=== PATIENT | female | born 1955 | race Two or more races ===

== ENCOUNTER 2022-12-04 23:57 | Inpatient (IN) | payer OTHER, MEDICAID ==
[~2022-12-04] VITALS: Ht 160 cm; Wt 98.5 kg
[2022-12-05] MEDS ORDERED: ONDANSETRON ODT 4 MG TAB PO ONE ×2 (02:45→04:30)
[2022-12-05] MEDS ORDERED: HYDROcodone-ACET 10/325MG TAB PO ONE (04:30)
[2022-12-05 04:55] LABS: Eosinophils # (auto) 0 10 ^3/uL (0-0.8); Hemoglobin 8.5 g/dL (12.2-16.2); Lymphocytes # (auto) 0.9 10 ^3/uL (0.4-5.4); Monocytes # (auto) 0.3 10 ^3/uL (0-1.3); Neutrophils # (auto) 9.3 10 ^3/uL (1.6-8.6); White Blood Cell 10.5 10^3/uL (4.4-10.8)
[2022-12-05 04:57] LABS: Basophils # (auto) 0.1 10 ^3/uL (0-0.2); Basophils % (auto) 0.6 % (0.0-2.0); Eosinophils % (auto) 0.3 % (0.0-7.0); Hematocrit 26.9 % (36.0-46.0); Lymphocytes % (auto) 8.3 % (10.0-50.0); Mean Corpuscular Hemoglobin 22.8 pg (28.0-32.0); Mean Corpuscular Hgb Conc. 31.5 g/dL (32.0-36.0); Mean Corpuscular Volume 72.6 fL (80.0-100.0); Monocytes % (auto) 3.1 % (0.0-12.0); Neutrophils % (auto) 87.7 % (37.0-80.0); Red Cell Distribution Width 18.5 % (11.8-14.3)
[2022-12-05 05:07] LABS: Albumin 3.6 g/dL (3.4-5.0); BUN/Creatinine Ratio 18.1; Calcium 8.6 mg/dL (8.5-10.1); Potassium 4.3 mmol/L (3.5-5.1)
[2022-12-05 05:10] LABS: Bilirubin, Total 0.3 mg/dL (0.2-1.0); Total Protein 7.5 g/dL (6.4-8.2)
[2022-12-05] MEDS ORDERED: SODIUM CHLORIDE 0.9% 1,000 ML IV SCH (05:45)
[2022-12-05] MEDS ORDERED: NITROGLYCERIN 0.4 MG SL TAB SL PRN (05:45)
[2022-12-05] MEDS ORDERED: MORPHINE SULFATE INJ 2 MG/ml SYRG IV PRN (05:45)
[2022-12-05] MEDS ORDERED: DEXTROSE (50%) 50ML SYRG IV PRN (05:45)
[2022-12-05] MEDS ORDERED: hydrALAZINE HCL 20 MG/ML VL IV PRN (05:45)
[2022-12-05] MEDS ORDERED: DOCUSATE SOD 100 MG CAP PO PRN (05:45)
[2022-12-05] MEDS ORDERED: ATOR20TA50 PO (06:11)
[2022-12-05] MEDS ORDERED: PRIM50TA27 PO (06:11)
[2022-12-05] MEDS ORDERED: HYDR25TA4 PO (06:11)
[2022-12-05] MEDS ORDERED: ASPI-543 PO (06:11)
[2022-12-05] MEDS ORDERED: GABA300C10 PO (06:11)
[2022-12-05] MEDS ORDERED: BENA5TAB9 PO (06:11)
[2022-12-05] MEDS: ONDANSETRON HCL 4 MG/2 ML VIAL IV PRN ×4 (06:42→22:09)
[2022-12-05] MEDS: InsuLIN REG 1unit/0.01ml Soln (100units/ml) SC SCH ×4 (06:48→22:00)
[2022-12-05] MEDS: ACCU-CHEK COMFORT CURVE STRIP VI SCH ×4 (06:48→22:00)
[2022-12-05] MEDS: HYDROcodone-ACET 5/325MG TAB PO PRN ×4 (07:54→22:22)
[2022-12-05] MEDS ORDERED: ASPirin 81 mg TAB PO SCH (10:00)
[2022-12-05] MEDS ORDERED: FUROSEMIDE 20 MG/2 ML VIAL IV SCH (10:00)
[2022-12-05] MEDS ORDERED: ENOXAPARIN SOD 40 MG/0.4 ML SYRINGE SC SCH (10:00)
[2022-12-05] MEDS ORDERED: FAMOTIDINE (10MG/ML) 2ML VL IV SCH (10:00)
[2022-12-05] MEDS ORDERED: CLOPIDOGREL BISULFATE 75 MG TAB PO ONE (11:00)
[2022-12-05] MEDS ORDERED: IOHEXOL 350 MG/ML 100ML IJ ONE (11:05)
[2022-12-05] MEDS ORDERED: PANTOPRAZOLE 40 MG TAB PO ONE (11:15)
[2022-12-05] MEDS: SUCRALFATE 1 GM/10 ML ORAL SUSP PO SCH ×3 (11:26→22:19)
[2022-12-05 11:50] LABS: Urine Bacteria NONE SEEN /hpf (None Seen); Urine Blood Negative /uL (Negative); Urine Hyaline Cast FEW /lpf (0 - 2); Urine Specific Gravity 1.006 (1.001-1.035); Urine WBC 3 /hpf (0 - 5)
[2022-12-05 11:51] LABS: Cholesterol 151 mg/dL (< 200); HDL Cholesterol 68 mg/dL (40-59); LDL Cholesterol 74 mg/dL (< 100); Triglycerides 83 mg/dL (< 150)
[2022-12-05 11:55] LABS: Alcohol, Urine < 3.0 mg/dL (0-10); Amphetamine Screen, Urine NEGATIVE (NEGATIVE); Barbiturate Scree,Urine NEGATIVE (NEGATIVE); Benzodiazephine Screen, Urine NEGATIVE (NEGATIVE); Cannabinoid Screen, Urine NEGATIVE (NEGATIVE); Cocaine Screen, Urine NEGATIVE (NEGATIVE); Opiate Scree,Urine NEGATIVE (NEGATIVE); Phencyclidine Screen, Urine NEGATIVE (NEGATIVE)
[2022-12-05] MEDS: ONDANSETRON ODT 4 MG TAB PO PRN (16:36)
[2022-12-05] MEDS: ATORVASTATIN 20 MG TAB PO SCH ×2 (22:00→22:20)
[2022-12-05] MEDS ORDERED: ATORVASTATIN 20 MG TAB PO SCH ×2 (22:00)
[2022-12-05] MEDS: FUROSEMIDE 20 MG/2 ML VIAL IV SCH (22:19)
[2022-12-05] MEDS: PRIMIDONE 50 MG TAB PO SCH (22:21)
[2022-12-05] MEDS: PANTOPRAZOLE 40 MG TAB PO SCH (22:22)
[2022-12-05] MEDS: GABAPENTIN 100 MG CAP PO SCH (22:22)
[2022-12-05 22:48] VITALS: BP 126/77
[2022-12-06] MEDS: ACETAMINOPHEN 325 MG TAB PO PRN ×4 (02:43→22:57)
[2022-12-06 03:08] VITALS: BP 127/64
[2022-12-06 05:00] VITALS: BP 119/62
[2022-12-06] MEDS: ONDANSETRON ODT 4 MG TAB PO PRN ×2 (05:09→16:47)
[2022-12-06 06:14] LABS: Basophils # (auto) 0.1 10 ^3/uL (0-0.2); Basophils % (auto) 1.2 % (0.0-2.0); Eosinophils # (auto) 0.1 10 ^3/uL (0-0.8); Eosinophils % (auto) 1.4 % (0.0-7.0); Hematocrit 23.8 % (36.0-46.0); Lymphocytes # (auto) 1.2 10 ^3/uL (0.4-5.4); Monocytes # (auto) 0.8 10 ^3/uL (0-1.3)
[2022-12-06 06:17] LABS: Hemoglobin 7.5 g/dL (12.2-16.2); Lymphocytes % (auto) 17.7 % (10.0-50.0); Mean Corpuscular Hemoglobin 22.7 pg (28.0-32.0); Mean Corpuscular Hgb Conc. 31.4 g/dL (32.0-36.0); Mean Corpuscular Volume 72.4 fL (80.0-100.0); Monocytes % (auto) 12.4 % (0.0-12.0); Neutrophils # (auto) 4.5 10 ^3/uL (1.6-8.6); Neutrophils % (auto) 67.3 % (37.0-80.0); Nucleated Red Blood Cells % 0.1 %; Red Blood Cells 3.29 10^6/uL (4.0-5.20); Red Cell Distribution Width 18.3 % (11.8-14.3); White Blood Cell 6.6 10^3/uL (4.4-10.8)
[2022-12-06] MEDS: ACCU-CHEK COMFORT CURVE STRIP VI SCH ×4 (06:31→21:22)
[2022-12-06] MEDS: SUCRALFATE 1 GM/10 ML ORAL SUSP PO SCH ×4 (06:31→21:20)
[2022-12-06] MEDS: InsuLIN REG 1unit/0.01ml Soln (100units/ml) SC SCH ×4 (06:31→21:22)
[2022-12-06 06:58] LABS: Potassium 3.6 mmol/L (3.5-5.1)
[2022-12-06 07:07] LABS: Albumin 3.4 g/dL (3.4-5.0); BUN/Creatinine Ratio 16.3; Bilirubin, Total 0.5 mg/dL (0.2-1.0); Calcium 8.3 mg/dL (8.5-10.1); Total Protein 6.3 g/dL (6.4-8.2)
[2022-12-06 08:20] LABS: % Iron Saturation 4.5 % (15-50)
[2022-12-06 09:00] VITALS: BP 126/71
[2022-12-06] MEDS: PANTOPRAZOLE 40 MG TAB PO SCH ×2 (09:48→21:20)
[2022-12-06] MEDS: FUROSEMIDE 20 MG/2 ML VIAL IV SCH ×2 (09:49→21:21)
[2022-12-06] MEDS ORDERED: CLOPIDOGREL BISULFATE 75 MG TAB PO SCH (10:00)
[2022-12-06 13:00] VITALS: BP 136/75
[2022-12-06] MEDS ORDERED: POLYETHYLENE GLYCOL 17 GM PWDR PO ONE (13:30)
[2022-12-06] MEDS ORDERED: SODIUM FERR GLUC 62.5MG/5ML 125 MG in SODIUM CHL 0.9% 100 ML IV ONE (14:30)
[2022-12-06 17:10] VITALS: BP 121/66
[2022-12-06] MEDS: ATORVASTATIN 20 MG TAB PO SCH (21:21)
[2022-12-06] MEDS: GABAPENTIN 100 MG CAP PO SCH (21:21)
[2022-12-06] MEDS: PRIMIDONE 50 MG TAB PO SCH (21:22)
[2022-12-06 22:00] VITALS: BP 136/66
[2022-12-07 05:00] VITALS: BP_SYST 114; BP_SYST 95; BP_DIAS 55; BP_DIAS 61
[2022-12-07] MEDS: SUCRALFATE 1 GM/10 ML ORAL SUSP PO SCH ×3 (06:01→17:00)
[2022-12-07] MEDS: InsuLIN REG 1unit/0.01ml Soln (100units/ml) SC SCH ×3 (06:01→17:00)
[2022-12-07] MEDS: ACCU-CHEK COMFORT CURVE STRIP VI SCH ×3 (06:01→17:00)
[2022-12-07] MEDS: ACETAMINOPHEN 325 MG TAB PO PRN ×2 (06:02→12:41)
[2022-12-07 06:22] LABS: Basophils # (auto) 0.2 10 ^3/uL (0-0.2); Basophils % (auto) 3.1 % (0.0-2.0); Eosinophils # (auto) 0.1 10 ^3/uL (0-0.8); Hematocrit 23.8 % (36.0-46.0); Hemoglobin 7.5 g/dL (12.2-16.2); Lymphocytes # (auto) 1.2 10 ^3/uL (0.4-5.4); Lymphocytes % (auto) 17.5 % (10.0-50.0); Mean Corpuscular Hgb Conc. 31.6 g/dL (32.0-36.0); Mean Corpuscular Volume 72.8 fL (80.0-100.0); Monocytes # (auto) 0.7 10 ^3/uL (0-1.3); Monocytes % (auto) 10.2 % (0.0-12.0); Neutrophils # (auto) 4.7 10 ^3/uL (1.6-8.6); Neutrophils % (auto) 67.2 % (37.0-80.0); Nucleated Red Blood Cells % 0.1 %; Red Blood Cells 3.27 10^6/uL (4.0-5.20); Red Cell Distribution Width 17.9 % (11.8-14.3); White Blood Cell 7.1 10^3/uL (4.4-10.8)
[2022-12-07 06:41] LABS: BUN/Creatinine Ratio 22.7; Calcium 8.4 mg/dL (8.5-10.1); Potassium 3.4 mmol/L (3.5-5.1)
[2022-12-07] MEDS ORDERED: FUR20T PO (06:45)
[2022-12-07] MEDS ORDERED: IBUP600T28 PO (06:45)
[2022-12-07] MEDS ORDERED: OMNIPAQUE ORAL SOLN 500ml 12mg/ml PO ONE (07:23)
[2022-12-07] MEDS ORDERED: POTASSIUM CHL 20 Meq TABLET PO ONE (07:30)
[2022-12-07 09:00] VITALS: BP 112/57
[2022-12-07] MEDS: PANTOPRAZOLE 40 MG TAB PO SCH (10:11)
[2022-12-07] MEDS: FUROSEMIDE 20 MG/2 ML VIAL IV SCH (10:16)
[2022-12-07] MEDS ORDERED: SODIUM FERR GLUC 62.5MG/5ML 125 MG in SODIUM CHL 0.9% 100 ML IV SCH (12:00)
[2022-12-07 13:00] VITALS: BP 132/74
[2022-12-07] MEDS ORDERED: PANT40T PO (13:52)
[2022-12-07] MEDS ORDERED: SUCR1SUS10 PO (13:52)
[2022-12-07] MEDS ORDERED: FERRTAB18 OR (13:52)
[2022-12-07 15:32] VITALS: BP 112/57
[2022-12-07 17:00] VITALS: BP 117/71
== END 2022-12-07 19:01 | disposition home or self-care (01) | DRG 64 ==
LOC: ER 23:57 → TELE 12-05 05:48 → TELE-EAST 12-05 23:35
PROVIDERS: ADMIT Nurse Practitioner Family; ATTEND Internal Medicine
DX: I63.81 Other cerebral infarction due to occlusion or stenosis of small artery (principal); K27.4 Chronic or unspecified peptic ulcer, site unspecified, with hemorrhage; D64.9 Anemia, unspecified; E66.01 Morbid (severe) obesity due to excess calories; G47.10 Hypersomnia, unspecified; M54.50 Low back pain, unspecified; M79.89 Other specified soft tissue disorders; Z20.822 Contact with and (suspected) exposure to COVID-19; G89.29 Other chronic pain; I10 Essential (primary) hypertension; E78.5 Hyperlipidemia, unspecified; Z79.82 Long term (current) use of aspirin; Z79.899 Other long term (current) drug therapy; Z82.0 Family history of epilepsy and other diseases of the nervous system; Z82.3 Family history of stroke; Z71.3 Dietary counseling and surveillance; Z68.38 Body mass index [BMI] 38.0-38.9, adult
CPT/HCPCS: 36415; 70450; 70496; 70551; 71045; 74176; 76700; 80048; 80053; 80061; 80307; 81001; 82306; 82607; 82728; 82962; 83036; 83540; 83550; 83615; 84443; 85025; 85045; 86850; 86900; 86901; 87426; 93306; 93886; 96361; 96372; 96374; 96375; 96376; 97116; 97163; 97530; G0378; J2405; J3490; Q0162

== ENCOUNTER 2023-07-28 12:04 | Emergency (ER) | payer OTHER, MEDICAID ==
[~2023-07-28] VITALS: Ht 160 cm; Wt 94.5 kg
[~2023-07-28 12:04] MED LIST: ATOR20TA50 PO; BENA5TAB9 PO; FERRTAB18 OR; FUR20T PO; GABA-1250 PO; HYDR25TA4 PO; PANT40T PO; PRIM50TA27 PO; SUCR1SUS26 PO
[2023-07-28 12:46] VITALS: BP 118/52; PULSE 64; RESP 20; TEMP 97.6; O2SAT 96
[2023-07-28] MEDS ORDERED: HYDROcodone-ACET 10/325MG TAB PO ONE (13:15)
[2023-07-28] MEDS ORDERED: PRED20TA2 PO (13:47)
== END 2023-07-28 13:57 | disposition home or self-care (01) ==
LOC: ER 12:04
DX: M51.36 Other intervertebral disc degeneration, lumbar region (principal); M54.16 Radiculopathy, lumbar region; I10 Essential (primary) hypertension; E78.5 Hyperlipidemia, unspecified; Z79.899 Other long term (current) drug therapy; Z88.8 Allergy status to other drugs, medicaments and biological substances
CPT/HCPCS: 72100

== ENCOUNTER → 2024-08-14 | Outpatient (CLI) | payer OTHER ==
[~2024-08-14] MED LIST changes: -FUR20T PO; +FURO20TA4 PO; +PRED20TA2 PO
[2024-08-14 11:48] LABS: Basophils # (auto) 0.1 10 ^3/uL (0-0.2); Basophils % (auto) 1.2 % (0.0-2.0); Eosinophils # (auto) 0.4 10 ^3/uL (0-0.8); Eosinophils % (auto) 6.3 % (0.0-7.0); Hematocrit 34.8 % (36.0-46.0); Hemoglobin 11.9 g/dL (12.2-16.2); Lymphocytes # (auto) 1.5 10 ^3/uL (0.4-5.4); Lymphocytes % (auto) 24.9 % (10.0-50.0); Mean Corpuscular Hemoglobin 33.3 pg (28.0-32.0); Mean Corpuscular Hgb Conc. 34.1 g/dL (32.0-36.0); Mean Corpuscular Volume 97.7 fL (80.0-100.0); Monocytes # (auto) 0.4 10 ^3/uL (0-1.3); Monocytes % (auto) 6.7 % (0.0-12.0); Neutrophils # (auto) 3.7 10 ^3/uL (1.6-8.6); Neutrophils % (auto) 60.9 % (37.0-80.0); Nucleated Red Blood Cells % 0.2 %; Platelet Count (auto) 202 10^3/uL (140-450); Red Blood Cells 3.56 10^6/uL (4.0-5.20); Red Cell Distribution Width 13.5 % (11.8-14.3)
[2024-08-14 12:19] LABS: Alanine Aminotransferase 28 U/L (7-40); Alkaline Phosphatase 152 U/L (46-116); Calcium 9.8 mg/dL (8.7-10.4); Carbon Dioxide 30 mmol/L (20-31); Chloride 108 mmol/L (98-107); Triglycerides 148 mg/dL (< 150)
[2024-08-14 12:20] LABS: Albumin 4.4 g/dL (3.2-4.8); Anion Gap 5 (5-15); Aspartate Aminotransferase 23 U/L (13-40); BUN/Creatinine Ratio 13.6 (10.0-20.0); Blood Urea Nitrogen 14 mg/dL (9-23); Glucose 97 mg/dL (74-106); LDL Cholesterol 85 mg/dL (< 100); Potassium 4.6 mmol/L (3.5-5.1); Sodium 143 mmol/L (136-145)
[2024-08-14 12:21] LABS: Bilirubin, Total 0.5 mg/dL (0.2-1.0); Cholesterol 150 mg/dL (< 200); HDL Cholesterol 47 mg/dL (40-59); Total Protein 6.8 g/dL (5.7-8.2)
== END | disposition home or self-care (01) ==
LOC: LAB 11:31
PROVIDERS: ATTEND Nurse Practitioner Family
DX: I10 Essential (primary) hypertension (principal); E78.5 Hyperlipidemia, unspecified; E66.9 Obesity, unspecified
CPT/HCPCS: 36415; 80053; 80061; 82306; 84443; 85025

== ENCOUNTER → 2024-11-01 | Outpatient (CLI) | payer OTHER ==
[~2024-11-01] MED LIST changes: +ASPI-543 PO; +HYDR-4902 PO; +LORA-622 PO; +MELO7.5T7 PO; +SPIR25TA8 PO
[2024-11-01 16:01] LABS: Chloride 106 mmol/L (98-107); Potassium 4.3 mmol/L (3.5-5.1); Sodium 140 mmol/L (136-145)
[2024-11-01 16:02] LABS: Anion Gap 6 (5-15); Carbon Dioxide 28 mmol/L (20-31)
[2024-11-01 16:03] LABS: Calcium 9.7 mg/dL (8.7-10.4)
[2024-11-01 16:07] LABS: Glucose 96 mg/dL (74-106)
[2024-11-01 16:08] LABS: BUN/Creatinine Ratio 9.6 (10.0-20.0); Blood Urea Nitrogen 10 mg/dL (9-23)
== END | disposition home or self-care (01) ==
LOC: LAB 15:41
PROVIDERS: ATTEND Nurse Practitioner Family
DX: R74.01 Elevation of levels of liver transaminase levels (principal)
CPT/HCPCS: 36415; 80048

== ENCOUNTER 2024-11-18 08:42 | Day surgery (SDC) | payer OTHER ==
[2024-11-13 14:07] LABS: Basophils # (auto) 0.1 10 ^3/uL (0-0.2); Basophils % (auto) 1.2 % (0.0-2.0); Eosinophils # (auto) 0.3 10 ^3/uL (0-0.8); Hematocrit 38.7 % (36.0-46.0); Hemoglobin 12.8 g/dL (12.2-16.2); Lymphocytes # (auto) 1.7 10 ^3/uL (0.4-5.4); Lymphocytes % (auto) 21.2 % (10.0-50.0); Mean Corpuscular Hemoglobin 30.8 pg (28.0-32.0); Mean Corpuscular Volume 93.5 fL (80.0-100.0); Monocytes # (auto) 0.5 10 ^3/uL (0-1.3); Neutrophils # (auto) 5.2 10 ^3/uL (1.6-8.6); Neutrophils % (auto) 66.6 % (37.0-80.0); Platelet Count (auto) 247 10^3/uL (140-450); Red Blood Cells 4.14 10^6/uL (4.0-5.20); White Blood Cell 7.9 10^3/uL (4.4-10.8)
[2024-11-13 14:23] LABS: INR 0.98 (0.9-1.15); Partial Thromboplastin Time 24.2 SEC (24.5-34.5); Prothrombin Time 10.4 sec (9.3-11.8)
[2024-11-13 14:49] LABS: Alanine Aminotransferase 29 U/L (7-40); Albumin 4.5 g/dL (3.2-4.8); Anion Gap 7 (5-15); BUN/Creatinine Ratio 15.6 (10.0-20.0); Blood Urea Nitrogen 14 mg/dL (9-23); Calcium 9.6 mg/dL (8.7-10.4); Carbon Dioxide 27 mmol/L (20-31); Glucose 104 mg/dL (74-106); Potassium 3.9 mmol/L (3.5-5.1); Sodium 142 mmol/L (136-145)
[2024-11-13 14:50] LABS: Bilirubin, Total 0.5 mg/dL (0.2-1.0)
[2024-11-13 14:51] LABS: Total Protein 6.9 g/dL (5.7-8.2)
[2024-11-13 14:54] LABS: Alkaline Phosphatase 190 U/L (46-116); Aspartate Aminotransferase < 8 U/L (13-40); Chloride 108 mmol/L (98-107)
[2024-11-13 15:05] LABS: Urine Bacteria FEW /hpf (None Seen); Urine Blood Negative /uL (Negative); Urine Clarity Turbid (Clear); Urine Color Colorless (Yellow); Urine Hyaline Cast FEW /lpf (0 - 2); Urine Mucus FEW (None Seen); Urine Protein, UAD Negative (Negative); Urine Specific Gravity 1.015 (1.001-1.035); Urine Squamous Epithelial Cell MOD /hpf (<5); Urine Urobilinogen Normal (Negative); Urine WBC 15 /hpf (0 - 5); Urine pH 5.5 (5.0-9.0)
[~2024-11-18] VITALS: Ht 160 cm; Wt 97.1 kg
[~2024-11-18 08:42] MED LIST changes: -FERRTAB18 OR; -PRED20TA2 PO; -PRIM50TA27 PO; -SUCR1SUS26 PO
[2024-11-18] MEDS ORDERED: PROPOFOL 10 MG/ML 20 ML IV ONE ×2 (10:03→10:15)
[2024-11-18] MEDS ORDERED: ONDANSETRON HCL 4 MG/2 ML VIAL ONE (10:15)
[2024-11-18 10:26] VITALS: O2SAT 96
[2024-11-18 11:20] VITALS: BP 101/47; PULSE 47; RESP 14; O2SAT 97
--- NOTE | 2024-12-02 09:15 | DVHNC2 ---
Procedure - DATE OF PROCEDURE: NOVEMBER 18, 2024 SURGEON: CAL LEMONS MD REFERRING PROVIDER: Johnie Cevallos MD PROCEDURE PERFORMED: 1. ESOPHAGOGASTRODUODENOSCOPY WITH BIOPSY WITH MAC PRE-PROCEDURE DIAGNOSIS: 1. GERD 2. ABDOMINAL PAIN 3. HISTORY OF GASTRIC ULCER 4. DYSPHAGIA POSTPROCEDURE DIAGNOSIS: 1. MILD EROSIVE ESOPHAGITIS , LA GRADE A 2. 3 CM HIATAL HERNIA 3. ULCERATION AT PYLORUS, BIOPSIES TAKEN INDICATIONS FOR PROCEDURE: The patient is a 69-year-old female who presents for outpatient endoscopy for abdominal pain, dysphagia, history of peptic ulcer disease, and GERD refractory to treatment. EGD is warranted for evaluation. MEDICATIONS USED: Per Dr. Nichols anesthesia DETAILS OF THE PROCEDURE: Informed consent was obtained after risks, benefits, and alternatives, were discussed at length with the patient. The patient gave consent to the procedure as well as the medication used for anesthesia. The patient was placed in the left lateral decubitus position. An Olympus endoscope was inserted into the oropharynx and advanced into the esophagus, then into the stomach, then into the duodenal bulb and duodenum. The duodenal bulb and du odenum were normal. The scope was then withdrawn. The patient had ulceration at the pylorus and biopsies were taken. The scope was then withdrawn and the mucosa of the stomach carefully evaluated. There was no other ulcers, masses, strictures, or polyps seen. Retroflexion showed a 3 cm hiatal hernia. The scope was then withdrawn. The Z-line was at 35 cm. The patient had mild erosive esophagitis. The scope was then withdrawn and the procedure completed patient tolerated the procedure well. IMPRESSION: 1. MILD EROSIVE ESOPHAGITIS LA GRADE A 2. 3 CM HIATAL HERNIA 3. BENIGN APPEARING ULCERATION AT THE PYLORUS, BIOPSIES TAKEN RECOMMENDATIONS: 1. PATIENT SHOULD BE ON A PROTON PUMP INHIBITOR TWICE DAILY 2. AVOID ASPIRIN, NSAIDS AND ANTICOAGULANTS 3. FOLLOW UP WITH BIOPSIES 4. REPEAT ENDOSCOPY IN TWO MONTHS TO ENSURE HEALING OF THE ULCER 5. CONSIDER FURTHER WORKUP WITH THE PATIENT'S SYMPTOMS IF THEY PERSIST OR WORSEN I WOULD LIKE TO THANK DR. Cevallos FOR THIS REFERRAL CAL LEMONS MD Dec 02, 2024 09:15
== END 2024-11-18 11:22 | disposition home or self-care (01) ==
LOC: GI 08:42
PROVIDERS: ATTEND Specialist
DX: K21.00 Gastro-esophageal reflux disease with esophagitis, without bleeding (principal); K29.50 Unspecified chronic gastritis without bleeding; R13.10 Dysphagia, unspecified; R10.9 Unspecified abdominal pain; K44.9 Diaphragmatic hernia without obstruction or gangrene; Z90.49 Acquired absence of other specified parts of digestive tract; Z98.51 Tubal ligation status; Z88.8 Allergy status to other drugs, medicaments and biological substances
CPT/HCPCS: 36415; 43239; 80053; 81001; 85025; 85610; 85730; 88305; 88312; 88342; J2405; J2704

== ENCOUNTER 2025-01-12 16:46 | Inpatient (IN) | payer OTHER, MEDICAID ==
[~2025-01-12] VITALS: Ht 160 cm; Wt 109.0 kg
[2025-01-12 17:00] VITALS: PULSE 64; RESP 16; O2SAT 98
--- NOTE | 2025-01-12 17:26 | ED.PDOC ---
HPI Comments HPI: 69 year old female MANOJ presents to the ED with chief complaint of hypotension and lightheadedness. Patient reports that she has been experiencing episodes of near syncope and lightheadedness today. Patient relays that when EMS evaluated her, her BP was noted to be hypotensive. Patient states since her arrival to the ED, she has felt somewhat okay now. Patient denies any chest pain, SOB, dizziness, headache, or N/V. All her symptoms have resolved prior to my evaluation. Her vital signs here are stable at my initial evaluation in the ED. Initial Vital Signs: Temp : 97.8f BP: 84/52 HR: 62 RR: 15 SpO2: 99% Past Medical History: HTN, HLD, CHF Past Surgical History: Cholecystectomy, Tubal ligation Social History: Denies smoking, ETOH, or drug use. Medications: Lasix, ASA Allergies: Zinc HPI: Poor Historian. REVIEW OF SYSTEMS: CONSTITUTIONAL: Denies acute: fever, diaphoresis, chills, HEAD: Denies acute: headache, photophobia Eyes: Denies acute: Double vision, vision loss, eye pain, eye discharge. EARS: Denies acute: tinnitus, hearing loss, ear discharge, ear pain, THROAT: Denies acute: sore throat, swelling, difficulty swallowing , pain with swallowing, change in voice. NECK: Denies acute: neck pain, neck swelling, stiff neck. HEART: Denies acute : chest pain, palpitations, LUNGS: Denies acute: SOB, wheezing, cough, hemoptysis ABDOMEN: Denies acute: abdominal pain, Nausea, Vomiting, diarrhea, melena , hematemesis, hematochezia SKIN: Denies acute: rash, redness, lesions, itchiness. EXTREMITIES: Denies acute: calf pain, numbness, tingling, weakness, denies pain in extremity. Denies acute: Low back pain. Neuro: Denies acute: focal neurological deficit, motor or sensory focal neurological deficit, tremors, seizure like activity, confusion, change in mental status, loss of bowel or bladder function, cauda equina like symptoms. : Denies acute: dysuria, hematuria, flank pain, increase in urinary frequency. PSYCH: Denies acute: hallucination, suicidal ideation, homicidal ideation. FEMALE: Denies acute: abnormal vaginal bleeding, foul odor, unusual discharge. PHYSICAL EXAM: General: no acute distress, awake and alert. Head: normocephalic, atraumatic. Neck: supple, trachea is midline, no swelling. Throat: Normal phonation. Eyes:, no erythema, no purulent discharge, no proptosis, no icterus. Heart: regular rate, regular rhythm, no significant murmur appreciated. Lungs: no apparent respiratory distress, Able to speak in full sentences. No wheezing, no rhonchi, no crackles. No stridors Clear to auscultation bilaterally. Abdomen: non tender to palpation, non distended, soft, no guarding, no rebound, + bowel sounds. Obese Neuro: Awake, Alert, oriented to name, self, situation, follows commands GCS=15. Speech is normal. Skin: no petechia, no purpura, no cyanosis, non-pale, not jaundice. Lower extremities: --no - Pitting edema no deformity, no focal swelling, no calf TTP. Makes eye contact. moves all four extremities. Face: no apparent facial droop. ED COURSE: Chief Complaint: Low Blood Pressure Time Seen by MD: 17:23 Primary Care Provider: UNKNOWN Reviewed Notes: Nurses Notes, Medications, Allergies Allergies: Coded Allergies: Zinc (Verified Allergy, Unknown, 12/05/22) Home Meds Active Scripts Pantoprazole Sodium Sesquihydr (Pantoprazole Sodium) 40 Mg Tab, 40 MG PO BID for 30 Days, #60 TAB Prov:LONA HAMILTON MD 12/07/22 Reported Medications Hydrocodone-Acetaminophen (Hydrocodone Bitartrate/AC 5-325 mg) 1 Tab Tab, 1 TAB PO BID, TAB 11/07/24 Meloxicam (Meloxicam) 7.5 Mg Tab, 1 TAB PO PRN, #30 TAB 2 Refills 11/07/24 Aspirin (Aspir-Low) 81 Mg Tab, 81 MG PO DAILY, TAB 11/07/24 Spironolactone (Spironolactone) 25 Mg Tab, 1 TAB PO DAILY, #90 TAB 1 Refill 11/07/24 Loratadine (Claritin) 10 Mg Tab, 10 MG PO DAILY, TAB 1/14/25 Furosemide (Furosemide) 20 Mg Tab, 1 TAB PO BID 12/07/22 Atorvastatin Calcium (ATORVASTATIN CALCIUM) 20 Mg Tab, 20 MG PO DAILY, TAB 12/05/22 Hydrochlorothiazide (Hydrochlorothiazide) 25 Mg Tab, 25 MG PO DAILY, MG 12/05/22 Benazepril Hcl (Benazepril Hcl) 5 Mg Tab, 5 MG PO DAILY, MG 12/05/22 Gabapentin (Gabapentin) 300 Mg Cap, 300 MG PO BID, CAP 12/05/22 Information Source: Patient Mode of Arrival: EMS Was a procedure done? Was a procedure done?: No CP Differential Dx Differential Diagnosis: A-fib, A-Flutter, Angina, Anxiety / Panic Attack, Atrial Dysrhythmia, AV Block 1st Degree, AV Block 2nd Degree, AV Block 3rd Degree, Digoxin Toxicity, Electrolyte Disorder, Heart Failure, Hyperthyroidism, Hyperventilation, Hypoxia, MAT, PAC's, Other (Infection, dehydration, anemia,) X-Ray, Labs, Meds, VS Vital Signs Date Time Temp Pulse Resp B/P (MAP) Pulse Ox O2 Delivery O2 Flow Rate FiO2 01/12/25 21:00 98.1 50 18 110/72 (85) 97 98.1 01/12/25 19:35 97.5 56 19 95/54 (68) 100 97.5 01/12/25 19:00 54 15 100 Room Air* 0 21 01/12/25 19:00 57 16 99/54 (69) 99 01/12/25 18:30 66 16 89/39 (56) 97 01/12/25 18:00 60 16 101/47 (65) 96 01/12/25 18:00 59 01/12/25 17:16 97.8 62 15 84/52 (63) 99 97.8 01/12/25 17:00 62 01/12/25 17:00 97.8 47 16 101/47 (65) 98 97.8 01/12/25 17:00 64 16 98 Room Air* 0 21 01/12/25 17:00 50 101/47 Lab Test 01/12/25 21:19 01/12/25 18:30 01/12/25 17:30 01/12/25 14:34 Range/Units Troponin I High Sensitivity 11 11 11 </=34 ng/L Urine Color Light-yellow Yellow Urine Clarity Turbid H Clear Urine pH 6.0 5.0-9.0 Urine Specific [place] 1.014 1.001-1.035 Urine Protein Negative Negative Urine Ketones Negative Negative Urine Blood Negative Negative /uL Urine Nitrite Negative Negative Urine Bilirubin Negative Negative Urine Urobilinogen Normal Negative mg/dL Urine Leukocyte Esterase 3+ Negative /uL Urine RBC 2 0 - 4 /hpf Urine Microscopic WBC 2 0-5 /HPF Urine Squamous Epithelial Cells Mod <5 /hpf Urine Bacteria Few H None Seen /hpf Urine Hyaline Casts Few 0 - 2 /lpf Urine Mucus Few None Seen Urine Yeast (Budding) Occasional None Seen /hpf Urine Glucose Normal Normal mg/dL White Blood Count 9.8 4.4-10.8 10^3/uL Red Blood Count 4.09 4.0-5.20 10^6/uL Hemoglobin 12.4 12.2-16.2 g/dL Hematocrit 37.5 36.0-46.0 % Mean Corpuscular Volume 91.7 80.0-100.0 fL Mean Corpuscular Hemoglobin 30.4 28.0-32.0 pg Mean Corpuscular Hemoglobin Concent 33.2 32.0-36.0 g/dL Red Cell Distribution Width 14.6 H 11.8-14.3 % Platelet Count 221 140-450 10^3/uL Mean Platelet Volume 9.4 6.9-10.8 fL Neutrophils (%) (Auto) 80.0 37.0-80.0 % Lymphocytes (%) (Auto) 11.7 10.0-50.0 % Monocytes (%) (Auto) 5.2 0.0-12.0 % Eosinophils (%) (Auto) 2.6 0.0-7.0 % Basophils (%) (Auto) 0.5 0.0-2.0 % Neutrophils # (Auto) 7.9 1.6-8.6 10 ^3/uL Lymphocytes # (Auto) 1.1 0.4-5.4 10 ^3/uL Monocytes # (Auto) 0.5 0-1.3 10 ^3/uL Eosinophils # (Auto) 0.3 0-0.8 10 ^3/uL Basophils # (Auto) 0 0-0.2 10 ^3/uL Nucleated Red Blood Cells 0.1 % Sodium Level 143 136-145 mmol/L Potassium Level 3.9 3.5-5.1 mmol/L Chloride Level 110 H 98-107 mmol/L Carbon Dioxide Level 25 20-31 mmol/L Anion Gap 8 5-15 Blood Urea Nitrogen 16 9-23 mg/dL Creatinine 1.22 H 0.550-1.02 mg/dL Glomerular Filtration Rate Calc 48 >90 mL/min BUN/Creatinine Ratio 13.1 10.0-20.0 Serum Glucose 135 H 74-106 mg/dL Lactic Acid Level 1.5 0.4-2.0 mmol/L Calcium Level 9.2 8.7-10.4 mg/dL Magnesium Level 2.3 1.6-2.6 mg/dL Total Bilirubin 0.5 0.2-1.0 mg/dL Aspartate Amino Transferase (AST) 23 13-40 U/L Alanine Aminotransferase (ALT) 26 7-40 U/L Alkaline Phosphatase 159 H 46-116 U/L B-Type Natriuretic Peptide 95.36 0-100 pg/mL Total Protein 6.5 5.7-8.2 g/dL Albumin 4.2 3.2-4.8 g/dL Current Medications Medications (Trade) Dose Ordered Sig/Noemi Route Start Time Stop Time Status Last Admin Sodium Chloride 1,000 ml @ 1,000 mls/hr Q1H ONCE IV 01/12/25 18:30 01/12/25 19:29 DC 01/12/25 18:27 Time of 1ST Reevaluation: 18:23 Reevaluation 1ST: Improved Patient Education/Counseling: Diagnosis, Treatment Family Education/Counseling: No Family Present Comments Patient presented with the above HPI.--near-syncope----workup was initiated. patient was found with the above mentioned diagnosis. the following medications were ordered: please refer to order lists of meds and tests obtained by myself Dr. North. Patient ED course and VS have been stabilized. Patient has been reassessed in the ED and remained in a stable condition. Pertinent incidental findings were discussed with the patient and/or family. Patient/family voices understanding and is agreeable with plan. Patient has been observed in the ED adequate length of time to insure improvement/stability. Escalation of care considered: Consideration of escalation to observation or admission Patient was hypotensive and bradycardic. We gave her some fluid resuscitation. She improved. Then after further observation she dropped her blood pressure again and her heart rate goes as low as 40s. Patient was ADMITTED to the medicine team for further evaluation and treatment of their presentation. All the reports of any imaging studies that were ordered by myself were reviewed by myself. Departure 1 Departure Time of Disposition: 18:15 Impression: Primary Impression: Hypotensive episode Additional Impressions: Near syncope Bradycardia Disposition: ADMITTED INPATIENT Admit to: Tele Condition: Guarded Discharged With: Self Critical Care Note Critical Care Time?: Yes (45 min-critical care time only) I personally scribed for JAY NORTH DO ([email or web address]) on 01/12/25 at 17:26. Electronically submitted by Catalino Nixon ([email or web address]). JAY NORTH DO Jan 12, 2025 17:26
--- NOTE | 2025-01-12 18:20 | DVH ---
EXAM: XY CHEST PORTABLE TECHNIQUE: Single frontal chest radiograph CLINICAL HISTORY: hypotension/ near syncope COMPARISON: CHEST PORTABLE on DOS: 12/05/22, CXRP on DOS: 12/05/22 Findings/Impression: Frontal chest radiograph demonstrates no acute osseous or superficial soft tissue abnormalities. The trachea is midline. The cardiac silhouette and mediastinum are within normal limits. No pneumothorax, pleural effusions, or consolidations.
[2025-01-12 18:22] LABS: Basophils # (auto) 0 10 ^3/uL (0-0.2); Basophils % (auto) 0.5 % (0.0-2.0); Eosinophils # (auto) 0.3 10 ^3/uL (0-0.8); Eosinophils % (auto) 2.6 % (0.0-7.0); Hematocrit 37.5 % (36.0-46.0); Hemoglobin 12.4 g/dL (12.2-16.2); Lymphocytes # (auto) 1.1 10 ^3/uL (0.4-5.4); Lymphocytes % (auto) 11.7 % (10.0-50.0); Mean Corpuscular Hemoglobin 30.4 pg (28.0-32.0); Mean Corpuscular Hgb Conc. 33.2 g/dL (32.0-36.0); Mean Corpuscular Volume 91.7 fL (80.0-100.0); Monocytes # (auto) 0.5 10 ^3/uL (0-1.3); Monocytes % (auto) 5.2 % (0.0-12.0); Neutrophils # (auto) 7.9 10 ^3/uL (1.6-8.6); Nucleated Red Blood Cells % 0.1 %; Platelet Count (auto) 221 10^3/uL (140-450); Red Blood Cells 4.09 10^6/uL (4.0-5.20); Red Cell Distribution Width 14.6 % (11.8-14.3); White Blood Cell 9.8 10^3/uL (4.4-10.8)
[2025-01-12] MEDS: SODIUM CHLORIDE 0.9% 1,000 ML IV ONE (18:27)
[2025-01-12 18:33] LABS: Alanine Aminotransferase 26 U/L (7-40); Albumin 4.2 g/dL (3.2-4.8); Anion Gap 8 (5-15); Aspartate Aminotransferase 23 U/L (13-40); BUN/Creatinine Ratio 13.1 (10.0-20.0); Bilirubin, Total 0.5 mg/dL (0.2-1.0); Blood Urea Nitrogen 16 mg/dL (9-23); Calcium 9.2 mg/dL (8.7-10.4); Carbon Dioxide 25 mmol/L (20-31); Magnesium 2.3 mg/dL (1.6-2.6); Potassium 3.9 mmol/L (3.5-5.1); Sodium 143 mmol/L (136-145); Total Protein 6.5 g/dL (5.7-8.2)
[2025-01-12 18:55] LABS: Alkaline Phosphatase 159 U/L (46-116); Chloride 110 mmol/L (98-107); Glucose 135 mg/dL (74-106)
[2025-01-12 19:00] VITALS: PULSE 54; RESP 15; O2SAT 100
--- NOTE | 2025-01-12 19:01 | ECG ---
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
[2025-01-12 22:09] LABS: Urine Bacteria FEW /hpf (None Seen); Urine Blood Negative /uL (Negative); Urine Budding Yeast OCCASIONAL /hpf (None Seen); Urine Clarity Turbid (Clear); Urine Color Light-Yellow (Yellow); Urine Hyaline Cast FEW /lpf (0 - 2); Urine Mucus FEW (None Seen); Urine Protein, UAD Negative (Negative); Urine Specific Gravity 1.014 (1.001-1.035); Urine Squamous Epithelial Cell MOD /hpf (<5); Urine Urobilinogen Normal (Negative); Urine WBC 2 /HPF (0-5)
[2025-01-12] MEDS ORDERED: ONDANSETRON HCL 4 MG/2 ML VIAL IV PRN (22:15)
[2025-01-12] MEDS ORDERED: MORPHINE SULFATE INJ 2 MG/ml SYRG IV PRN (22:15)
[2025-01-12] MEDS ORDERED: NITROGLYCERIN 0.4 MG SL TAB SL PRN (22:15)
[2025-01-12] MEDS ORDERED: DOCUSATE SOD 100 MG CAP PO PRN (22:15)
[2025-01-12] MEDS: SODIUM CHLORIDE 0.9% 1,000 ML IV SCH (22:59)
[2025-01-12] MEDS: PANTOPRAZOLE 40 MG/10 ML VIAL INJ IV ONE (23:03)
[2025-01-13] VITALS (10 sets, daily range): BP systolic 103–131; BP diastolic 47–76; PULSE 51–74; RESP 17–20; TEMP 97.9–98.7; O2SAT 94–100
[2025-01-13] MEDS: HYDROcodone-ACET 5/325MG TAB PO PRN (00:50)
[2025-01-13] MEDS ORDERED: PROP80CA40 PO (01:17)
[2025-01-13] MEDS ORDERED: IBUP-1455 PO (01:17)
[2025-01-13] MEDS ORDERED: HYDR1TAB97 PO (01:17)
--- NOTE | 2025-01-13 02:01 | DVHHP2 ---
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 When EMS encounter with the patient patient was found to be hypotensive. Patient is currently taking propranolol, Lasix, spironolactone. She is not being followed by Cardiology. Patient also endorses she has been having diarrhea x1 week. While in the emergency department patient is noted to have heart rates ranging from 40s to low 50s. There are no complaints of fevers, chills, shortness of breath, chest pain, nausea, vomiting, abdominal pain, hematemesis, hematochezia, melena. Recently underwent endoscopy in October for evaluation of peptic ulcer. Cardiovascular: HTN, hyperipidemia GI: GERD Smoke: No ALCOHOL: none Drugs: None Lives: with Family Review of Systems Constitutional: Yes: Weakness, Other (Dizziness); No: Fever, Chills, Sweats, Malaise Eyes: No: Pain, Vision change, Conjunctivae inflammation, Eyelid inflammation, Other, Redness ENT: No: Ear pain, Ear discharge, Nose pain, Nose discharge, Nose congestion, Mouth pain, Mouth swelling, Throat pain, Throat swelling, Other Respiratory: No: Cough, Dry, Shortness of breath, SOB with excertion, Wheezing, Hemoptysis, Pleuritic Pain, Sputum, Wheezing, Other Cardiovascular: No: Chest Pain, Palpitations, Orthopnea, Paroxysmal Noc. Dyspnea, Edema, Lt Headedness, Other Gastrointestinal: Diarrhea; No: Nausea, Vomiting, Abdominal Pain, Constipation, Melena, Hematochezia, Other Genitourinary: No Dysuria, No Frequency, No Incontinence, No Hematuria, No Retention, No Other Musculoskeletal: No: other, neck pain, shoulder pain, arm pain, back pain, hand pain, leg pain, foot pain Skin: No: Rash, Lesions, Jaundice, Bruising, Other Neurological: No: Weakness, Numbness, Incoordination, Change in speech, Confusion, Seizures, Other Allergies: Coded Allergies: Zinc (Verified Allergy, Unknown, 12/05/22) Medications Current Medications Medications Dose Ordered Sig/Noemi Route Start Time Stop Time Status Last Admin Dose Admin Sodium Chloride 1,000 ml @ 100 mls/hr Q10H IV 01/12/25 22:15 01/13/25 03:14 01/12/25 22:59 100 MLS/HR Docusate Sodium 100 mg BIDPRN PRN PO 01/12/25 22:15 Acetaminophen 650 mg Q6HP PRN PO 01/12/25 22:15 Acetaminophen/ Hydrocodone Bitart 1 tab Q6HPRN PRN PO 01/12/25 22:15 01/13/25 00:50 1 TAB Ondansetron HCl 4 mg Q4HP PRN IV 01/12/25 22:15 Nitroglycerin 0.4 mg Q5MINP PRN SL 01/12/25 22:15 Morphine Sulfate 2 mg Q30M PRN IV 01/12/25 22:15 Atorvastatin Calcium 20 mg HS PO 01/13/25 22:00 Ceftriaxone Sodium 50 ml @ 100 mls/hr DAILY@09 IV 01/13/25 09:00 UNV Pantoprazole Sodium 40 mg DAILY IV 01/13/25 10:00 UNV Exam Vital Signs Vital Signs Date Time Temp Pulse Resp B/P (MAP) Pulse Ox O2 Delivery O2 Flow Rate FiO2 01/12/25 23:00 56 17 106/48 (67) 99 01/12/25 21:00 98.1 98.1 01/12/25 19:00 Room Air* 0 21 General Appearance: Alert, Oriented X3, Cooperative, mild distress HEENT: Atraumatic, PERRLA, EOMI Respiratory: Clear to auscultation, Normal air movement Cardiovascular: Regular rate, Normal S1, Normal S2 Abdominal: Normal bowel sounds, Soft, No tenderness Extremities: No clubbing, No cyanosis, Other (Mild nonpitting edema) Skin: No rashes, No breakdown Neuro: Normal gait, Normal speech, Strength at 5/5 X4 ext Psych/Mental Status: Mental status NL, Mood NL Labs/Xrays Labs Test 01/12/25 21:19 01/12/25 18:30 01/12/25 17:30 Range/Units Troponin I High Sensitivity 11 </=34 ng/L Urine Color Light-yellow Yellow Urine Clarity Turbid H Clear Urine pH 6.0 5.0-9.0 Urine Specific [place] 1.014 1.001-1.035 Urine Protein Negative Negative Urine Ketones Negative Negative Urine Blood Negative Negative /uL Urine Nitrite Negative Negative Urine Bilirubin Negative Negative Urine Urobilinogen Normal Negative mg/dL Urine Leukocyte Esterase 3+ Negative /uL Urine RBC 2 0 - 4 /hpf Urine Microscopic WBC 2 0-5 /HPF Urine Squamous Epithelial Cells Mod <5 /hpf Urine Bacteria Few H None Seen /hpf Urine Hyaline Casts Few 0 - 2 /lpf Urine Mucus Few None Seen Urine Yeast (Budding) Occasional None Seen /hpf Urine Glucose Normal Normal mg/dL White Blood Count 9.8 4.4-10.8 10^3/uL Red Blood Count 4.09 4.0-5.20 10^6/uL Hemoglobin 12.4 12.2-16.2 g/dL Hematocrit 37.5 36.0-46.0 % Mean Corpuscular Volume 91.7 80.0-100.0 fL Mean Corpuscular Hemoglobin 30.4 28.0-32.0 pg Mean Corpuscular Hemoglobin Concent 33.2 32.0-36.0 g/dL Red Cell Distribution Width 14.6 H 11.8-14.3 % Platelet Count 221 140-450 10^3/uL Mean Platelet Volume 9.4 6.9-10.8 fL Neutrophils (%) (Auto) 80.0 37.0-80.0 % Lymphocytes (%) (Auto) 11.7 10.0-50.0 % Monocytes (%) (Auto) 5.2 0.0-12.0 % Eosinophils (%) (Auto) 2.6 0.0-7.0 % Basophils (%) (Auto) 0.5 0.0-2.0 % Neutrophils # (Auto) 7.9 1.6-8.6 10 ^3/uL Lymphocytes # (Auto) 1.1 0.4-5.4 10 ^3/uL Monocytes # (Auto) 0.5 0-1.3 10 ^3/uL Eosinophils # (Auto) 0.3 0-0.8 10 ^3/uL Basophils # (Auto) 0 0-0.2 10 ^3/uL Nucleated Red Blood Cells 0.1 % Sodium Level 143 136-145 mmol/L Potassium Level 3.9 3.5-5.1 mmol/L Chloride Level 110 H 98-107 mmol/L Carbon Dioxide Level 25 20-31 mmol/L Anion Gap 8 5-15 Blood Urea Nitrogen 16 9-23 mg/dL Creatinine 1.22 H 0.550-1.02 mg/dL Glomerular Filtration Rate Calc 48 >90 mL/min BUN/Creatinine Ratio 13.1 10.0-20.0 Serum Glucose 135 H 74-106 mg/dL Lactic Acid Level 1.5 0.4-2.0 mmol/L Calcium Level 9.2 8.7-10.4 mg/dL Magnesium Level 2.3 1.6-2.6 mg/dL Total Bilirubin 0.5 0.2-1.0 mg/dL Aspartate Amino Transferase (AST) 23 13-40 U/L Alanine Aminotransferase (ALT) 26 7-40 U/L Alkaline Phosphatase 159 H 46-116 U/L B-Type Natriuretic Peptide 95.36 0-100 pg/mL Total Protein 6.5 5.7-8.2 g/dL Albumin 4.2 3.2-4.8 g/dL Assessment/Plan Assessment/Plan Near syncope Hypotension Bradycardia UTI Persistent diarrhea Plan Admit to telemetry Cardiology consult. Echocardiogram. Will hold propanolol, lasix, spironolactone. Orthostatic vital signs. G.I. consult. Stool for WBCs, culture, IVF NS @ 100ml 500ml IV ABX GI ppx protonix / DVT ppx scd Plan discussed with: Patient My Orders Orders - ILEANA MCCLAIN NP Procedure Category Date Status Time Admit ADMIT 01/12/25 Transmitted 22:08 Code Status CODE 01/12/25 Transmitted 22:08 Vital Signs IDRIS 01/12/25 In Process 22:08 Review Orders With IDRIS 01/12/25 In Process Adm. 22:08 Encourage Activity As IDRIS 01/12/25 In Process Tolerate 22:08 Sodium Chloride 0.9% PHA 01/12/25 In Process 22:15 Oxygen By Face Mask RT 01/12/25 Transmitted 22:08 Docusate Sodium PHA 01/12/25 In Process Capsule (Colace 22:15 Acetaminophen Tablet PHA 01/12/25 In Process (Tylenol Tablet) 22:15 Notify Of Changes IDRIS 01/12/25 In Process From Base 22:08 Advance Directive IDRIS 01/12/25 In Process 22:08 Echo 2d Mode Cardiac US 01/12/25 Logged DOP 22:08 Basic Metabolic Panel LAB 01/13/25 Logged 05:00 Basic Metabolic Panel LAB 01/14/25 Verified 05:00 Basic Metabolic Panel LAB 01/15/25 Verified 05:00 Basic Metabolic Panel LAB 01/16/25 Verified 05:00 Complete Blood Count LAB 01/13/25 Logged 05:00 Complete Blood Count LAB 01/14/25 Verified 05:00 Complete Blood Count LAB 01/15/25 Verified 05:00 Complete Blood Count LAB 01/16/25 Verified 05:00 Patient Condition ORDERS 01/12/25 Transmitted 22:08 Allergies IDRIS 01/12/25 In Process 22:08 Hydrocodone-Acet PHA 01/12/25 In Process 5/325mg Tab ([place] 22:15 Ondansetron Hcl PHA 01/12/25 In Process (Zofran) 22:15 Sequential IDRIS 01/12/25 In Process Compression Device Nitroglycerin PHA 01/12/25 In Process Sublingual (Ntrostat 22:15 Morphine Sulfate PHA 01/12/25 In Process Injection 22:15 Stat Ekg For Chest IDRIS 01/12/25 In Process Pain 22:08 Notify Md Of Changes IDRIS 01/12/25 In Process From Base 22:08 Auto Polisher For IDRIS 01/12/25 In Process 24 Hours 22:08 Emergency Dysrhythmia IDRIS 01/12/25 In Process Protocol 22:08 Rhythm Strips Once IDRIS 01/12/25 In Process Every Shift 22:08 Oxygen By Nasal RT 01/12/25 Transmitted Cannula 22:08 Stool Wbc LAB 01/12/25 Logged 22:08 Stool Bacterial YOUSIF 01/12/25 Logged Culture 22:08 * Gi Dvh Net Technical Architect CONS 01/12/25 Transmitted 22:08 * Cardiology Consult CONS 01/12/25 Transmitted 22:08 Atorvastatin (Lipitor) PHA 01/13/25 In Process 22:00 Orthostatic Vital ORDERS 01/12/25 Transmitted Signs 22:08 Orthostatic Vital ORDERS 01/13/25 Transmitted Signs 22:08 Orthostatic Vital ORDERS 01/14/25 Transmitted Signs 22:08 Orthostatic Vital ORDERS 01/15/25 Transmitted Signs 22:08 Ceftriaxone 1gm/50ml PHA 01/13/25 Logged D5w (Rocephin) 09:00 Pantoprazole PHA 01/13/25 Logged (Protonix) 10:00 Date of Service: Jan 13, 2025 Billing Provider: QUOC BETHEA MD Common Visit Codes: NOT BILLABLE QUOC BETHEA MD 01/13/25 1721: Review of Systems Allergies: Coded Allergies: Zinc (Verified Allergy, Unknown, 12/05/22) Assessment/Plan Assessment/Plan Patient showed is reviewed and discussed with the nurse practitioner. I agree with nurse practitioner's evaluation, documentation, assessment and care plan as outlined. ILEANA MCCLAIN NP Jan 13, 2025 02:01 QUOC BETHEA MD Jan 13, 2025 17:21
[2025-01-13 07:17] LABS: Basophils # (auto) 0.1 10 ^3/uL (0-0.2); Eosinophils # (auto) 0.3 10 ^3/uL (0-0.8); Hematocrit 33.5 % (36.0-46.0); Hemoglobin 11.1 g/dL (12.2-16.2); Lymphocytes % (auto) 23.6 % (10.0-50.0); Mean Corpuscular Hemoglobin 31.2 pg (28.0-32.0); Mean Corpuscular Hgb Conc. 33.1 g/dL (32.0-36.0); Mean Corpuscular Volume 94.4 fL (80.0-100.0); Monocytes # (auto) 0.6 10 ^3/uL (0-1.3); Monocytes % (auto) 7.1 % (0.0-12.0); Neutrophils # (auto) 5.5 10 ^3/uL (1.6-8.6); Neutrophils % (auto) 65.3 % (37.0-80.0); Nucleated Red Blood Cells % 0.1 %; Platelet Count (auto) 187 10^3/uL (140-450); Red Blood Cells 3.54 10^6/uL (4.0-5.20); White Blood Cell 8.4 10^3/uL (4.4-10.8)
[2025-01-13 07:23] LABS: Potassium 3.6 mmol/L (3.5-5.1)
[2025-01-13 07:24] LABS: Anion Gap 9 (5-15); Carbon Dioxide 22 mmol/L (20-31)
[2025-01-13 07:25] LABS: Calcium 8.8 mg/dL (8.7-10.4)
[2025-01-13 07:30] LABS: BUN/Creatinine Ratio 13.3 (10.0-20.0); Blood Urea Nitrogen 14 mg/dL (9-23); Chloride 114 mmol/L (98-107); Glucose 133 mg/dL (74-106); Sodium 145 mmol/L (136-145)
[2025-01-13] MEDS: PANTOPRAZOLE 40 MG/10 ML VIAL INJ IV SCH (09:10)
[2025-01-13] MEDS: cefTRIAXone 1GM/50ML D5W 50 ML IV SCH (09:10)
[2025-01-13] MEDS ORDERED: ENOXAPARIN SOD 40 MG/0.4 ML SYRINGE SC SCH (10:00)
[2025-01-13] MEDS ORDERED: FAMOTIDINE (10MG/ML) 2ML VL IV SCH (10:00)
--- NOTE | 2025-01-13 15:46 | DVHSR ---
APPROVED REPORT EXAM: Two-dimensional and M-mode echocardiogram with Doppler and color Doppler. Blood Pressure: 105/63 mmHg INDICATION bradycardia/ hypotension RISK FACTORS Obesity: Height: 5'3, Weight: 242 DIMENSIONS LVDd3.6 (3.8-5.7cm)LA (2D)3.2 (1.9-4.0cm)Aortic Root3.5 (2.0-3.7cm) LVDs2.7 (2.5-4.0cm)LA (MM) (1.9-4.0cm)Aortic Cusp Exc2.0 (1.5-2.0cm) EF (%) 50.0 (55-70%)Rt. Atrium4.1 (1.9-4.0cm)Asc. Aorta cm IVSd1.2 (0.7-1.1cm)RV (D)4.1 (1.8-2.4cm) PWd1.0 (0.7-1.1cm) Mitral Valve MitralMitral Stenosis E wave1.04m/sMV Mean GR.mmHg A wave0.97m/sMV Peak GR.75mmHg E/A ratio1.12D MVAcm2 DECEL [id number] 1/2 Timems Aortic Valve Aortic ValveAortic Stenosis V11.52m/Wang Mean GR.8mmHg V21.92m/Wang Peak GR.15mmHg LVOT Diameter2.3 (1.8-2.4cm)Doppler AVA3.29cm2 Pulmonic Valve V21.17m/s Tricuspid Valve TR Velocity2.71m/s [id number] Conclusion Technically good study sinus bradycardia. Mild aortic root enlargement. Right atrial and right ventricular enlargement. Valves are normal. Left ventricular systolic performance is normal. EF is about 50%. Normal RV function. Moderator ba nd noted in RV Dopplers unremarkable. No pericardial effusion masses or vegetations.
[2025-01-13] MEDS: ACETAMINOPHEN 325 MG TAB PO PRN (16:58)
--- NOTE | 2025-01-13 17:00 | DVHINCON2 ---
Date Seen: Jan 13, 2025 Referring Physician SANDRA Hardy Reason for Consultation Hypotension/bradycardia History of Present Illness This is a 69-year-old female who presented to the emergency room via EMS with a chief complaint of dizziness. The patient complaint of dizziness and a near syn copal event with associated hypotension. Upon arrival to the emergency room she was found with a blood pressure of 84/52 mmHg and an associated heart rate of 62 bpm. The patient was administered IVF x 2L now with optimal BPs and no further symptoms. court monitor reviewed noted sinus bradycardia as low as 46 bpm at rest without evidence of sinus pauses or atrioventricular blocks. States she is taking propranolol for tremors as prescribed by her neurologist, Dr. Wren. A 12 lead electrocardiogram revealed a normal sinus rhythm. Serial troponin levels are negative. Significant medical history includes hypertension, dyslipidemia, GERD, tremors, chronic low back pain, sleep related breathing disorder, and morbid obesity. Past Medical History Past medical history reviewed. No other significant than mentioned above. Past Surgical History Past surgical history reviewed. No other significant than mentioned above. Family History: FH: Parkinson's disease G8 FATHER, FH: atrial fibrillation G8 MOTHER FH: neuropathy G8 MOTHER Hypercholesterolemia G8 MOTHER Hypertension G8 MOTHER Family History Family history reviewed. Social History Denies the use of illicit drugs, alcohol, or tobacco use. Allergies: Coded Allergies: Zinc (Verified Allergy, Unknown, 12/05/22) Home Meds Active Scripts Pantoprazole Sodium Sesquihydr (Pantoprazole Sodium) 40 Mg Tab, 40 MG PO BID for 30 Days, #60 TAB Prov:LONA HAMILTON MD 12/07/22 Reported Medications Hydrocodone-Acetaminophen (Hydrocodone/Acetaminophen 5-325 mg) 1 Tab Tab, 1 TAB PO TID PRN for pain 01/13/25 Ibuprofen Micronized (Ibuprofen) 800 Mg Tab, 1 TAB PO TID PRN for PAIN 01/13/25 Propranolol Hcl (Inderal La) 80 Mg Cap, 80 MG PO TID, CAP 01/13/25 Aspirin (Aspir-Low) 81 Mg Tab, 81 MG PO DAILY, TAB 11/07/24 Spironolactone (Spironolactone) 25 Mg Tab, 1 TAB PO DAILY, #90 TAB 1 Refill 11/07/24 Loratadine (Claritin) 10 Mg Tab, 10 MG PO DAILY, TAB 11/07/24 Furosemide (Furosemide) 20 Mg Tab, 1 TAB PO BID 12/07/22 Atorvastatin Calcium (ATORVASTATIN CALCIUM) 20 Mg Tab, 20 MG PO DAILY, TAB 12/05/22 Benazepril Hcl (Benazepril Hcl) 5 Mg Tab, 5 MG PO DAILY, MG 12/05/22 Gabapentin (Gabapentin) 300 Mg Cap, 300 MG PO DAILY, CAP 12/05/22 Home Meds Home medications reviewed. Current Medications Current Medications Medications (Trade) Dose Ordered Sig/Noemi Route PRN Reason Start Time Stop Time Status Last Admin Sodium Chloride 1,000 ml @ 100 mls/hr Q10H IV 01/12/25 22:15 01/13/25 03:14 DC 01/12/25 22:59 Docusate Sodium (Colace Capsule) 100 mg BIDPRN PRN PO FOR CONSTIPATION 01/12/25 22:15 Acetaminophen (Tylenol Tablet) 650 mg Q6HP PRN PO PAIN SCALE 1-3 OR TEMP>100.4 01/12/25 22:15 Acetaminophen/ Hydrocodone Bitart ([place] 5/325MG Tab) 1 tab Q6HPRN PRN PO MODERATE PAIN (4-6 PAIN SCALE) 01/12/25 22:15 01/13/25 00:50 Ondansetron HCl (Zofran) 4 mg Q4HP PRN IV NAUSEA / VOMITING 01/12/25 22:15 Enoxaparin Sodium (Lovenox) 40 mg DAILY SC 01/13/25 10:00 01/13/25 01:45 DC Nitroglycerin (Ntrostat Sublingual) 0.4 mg Q5MINP PRN SL FOR CHEST PAIN 01/12/25 22:15 Morphine Sulfate 2 mg Q30M PRN IV FOR CHEST PAIN 01/12/25 22:15 Atorvastatin Calcium (Lipitor) 20 mg HS PO 01/13/25 22:00 Famotidine (Pepcid Injection) 20 mg DAILY IV 01/13/25 10:00 01/13/25 01:45 DC Ceftriaxone Sodium 50 ml @ 100 mls/hr DAILY@09 IV 01/13/25 09:00 01/13/25 09:10 Pantoprazole Sodium (Protonix) 40 mg DAILY IV 01/13/25 10:00 01/13/25 09:10 Review of Systems Constitutional: No symptom reported Ears, Nose, & Throat: No symptom reported Eyes: No symptom reported Neurological: Dizziness, near syncopal event Pulmonary/Respiratory: No symptom reported Cardiovascular: No symptom reported Gastrointestinal: No symptom reported Genitourinary: No symptom reported Musculoskeletal: No symptom reported Skin: No symptom reported Psychiatric: No symptom reported Endocrine: No symptom reported Hemotologic/Lymphatic: No symptom reported Vital Signs Vital Signs Date Time Temp Pulse Resp B/P (MAP) Pulse Ox O2 Delivery O2 Flow Rate FiO2 01/13/25 12:45 98.0 54 17 113/51 (71) 94 98.0 01/13/25 07:45 Room Air* 0 21 Physical Exam General Appearance: Cooperative. Well developed. Morbidly obese. In no acute distress Head Exam: Normal inspection Neck Exam: Normal inspection. Non-tender. Normal alignment Pulmonary/Respiratory: Chest non-tender. Clear bilateral breath sounds Cardiovascular/Chest: Regular rate and rhythm. S1, S2. NSR with intermittent sinus bradycardia. No murmurs. No JVD. Peripheral Pulses: 2+ Radial (R). 2+ Radial (L). 2+ Pedal (R). 2+ Pedal (L) Abdominal Exam: Normal bowel sounds. Soft. Nontender. No hepatospenomegaly. No masses Ankle Exam: Negative ankle edema Lower extremities: Negative lower extremity edema Neuro/Mental Status: A&O x4. Coherent Thoughts/Psych: Normal thought pattern. Appropriate mood and affect. Good judgement and insight Appearance: In no acute distress Skin Exam: Normal inspection. Normal color. Warm. Dry Labs/Diagnostic Data Labs Test 01/13/25 11:40 01/13/25 05:38 01/12/25 21:19 01/12/25 18:30 Range/Units Stool for White Cells None seen White Blood Count 8.4 4.4-10.8 10^3/uL Red Blood Count 3.54 L 4.0-5.20 10^6/uL Hemoglobin 11.1 L 12.2-16.2 g/dL Hematocrit 33.5 #L 36.0-46.0 % Mean Corpuscular Volume 94.4 80.0-100.0 fL Mean Corpuscular Hemoglobin 31.2 28.0-32.0 pg Mean Corpuscular Hemoglobin Concent 33.1 32.0-36.0 g/dL Red Cell Distribution Width 15.0 H 11.8-14.3 % Platelet Count 187 140-450 10^3/uL Mean Platelet Volume 9.6 6.9-10.8 fL Neutrophils (%) (Auto) 65.3 37.0-80.0 % Lymphocytes (%) (Auto) 23.6 10.0-50.0 % Monocytes (%) (Auto) 7.1 0.0-12.0 % Eosinophils (%) (Auto) 3.0 0.0-7.0 % Basophils (%) (Auto) 1.0 0.0-2.0 % Neutrophils # (Auto) 5.5 1.6-8.6 10 ^3/uL Lymphocytes # (Auto) 2.0 0.4-5.4 10 ^3/uL Monocytes # (Auto) 0.6 0-1.3 10 ^3/uL Eosinophils # (Auto) 0.3 0-0.8 10 ^3/uL Basophils # (Auto) 0.1 0-0.2 10 ^3/uL Nucleated Red Blood Cells 0.1 % Sodium Level 145 136-145 mmol/L Potassium Level 3.6 3.5-5.1 mmol/L Chloride Level 114 H 98-107 mmol/L Carbon Dioxide Level 22 20-31 mmol/L Anion Gap 9 5-15 Blood Urea Nitrogen 14 9-23 mg/dL Creatinine 1.05 H 0.550-1.02 mg/dL Glomerular Filtration Rate Calc 58 >90 mL/min BUN/Creatinine Ratio 13.3 10.0-20.0 Serum Glucose 133 H 74-106 mg/dL Calcium Level 8.8 8.7-10.4 mg/dL Troponin I High Sensitivity 11 </=34 ng/L Urine Color Light-yellow Yellow Urine Clarity Turbid H Clear Urine pH 6.0 5.0-9.0 Urine Specific [place] 1.014 1.001-1.035 Urine Protein Negative Negative Urine Ketones Negative Negative Urine Blood Negative Negative /uL Urine Nitrite Negative Negative Urine Bilirubin Negative Negative Urine Urobilinogen Normal Negative mg/dL Urine Leukocyte Esterase 3+ Negative /uL Urine RBC 2 0 - 4 /hpf Urine Microscopic WBC 2 0-5 /HPF Urine Squamous Epithelial Cells Mod <5 /hpf Urine Bacteria Few H None Seen /hpf Urine Hyaline Casts Few 0 - 2 /lpf Urine Mucus Few None Seen Urine Yeast (Budding) Occasional None Seen /hpf Urine Glucose Normal Normal mg/dL Test 01/12/25 17:30 Range/Units Lactic Acid Level 1.5 0.4-2.0 mmol/L Magnesium Level 2.3 1.6-2.6 mg/dL Total Bilirubin 0.5 0.2-1.0 mg/dL Aspartate Amino Transferase (AST) 23 13-40 U/L Alanine Aminotransferase (ALT) 26 7-40 U/L Alkaline Phosphatase 159 H 46-116 U/L B-Type Natriuretic Peptide 95.36 0-100 pg/mL Total Protein 6.5 5.7-8.2 g/dL Albumin 4.2 3.2-4.8 g/dL Assessment Beta-fredy induced bradycardia Hypotension likely secondary to acute dehydration Hypertension Dyslipidemia Morbid obesity Plan/Recommendation (Dr. Bourne) A transthoracic echocardiogram revealed an EF of 50% with normal RV function and normal valves. Bradycardia likely secondary to propranolol therapy for tremors with recommendations for discontinuation. Blood pressure improved after IV fluid administration yielding to a high possibility for acute dehydration. Consider an outpatient event monitor if deemed necessary. Initiate a BP log at home and take to PCP as antihypertensive therapy may be too aggressive. There is no further cardiac workup indicated at this time. Thank you for allowing us to participate in this patient's care. This medical document was created using an electronic medical record system with voice recognition software and computerized dictation system. Although this document has been carefully reviewed, there might still be some phonetic and typographical errors. Occasional wrong-word or ``sound-alike substitutions may have occurred due to the inherent limitations of voice recognition software. These areas are purely typographical due to imperfections of the software programs and do not reflect any compromise in the patient's medical care. Please read the chart carefully and recognize, using context, where these substitutions have occurred. Plan discussed with: Patient, Other NYHA Physical activity limitations: NA Date of Service: Jan 13, 2025 Billing Provider: JACQUELINE WHITT Cardiology Common Codes: 51033-YFYHDAG INP/OBS CARE (High) JACQUELINE WHITT Jan 13, 2025 17:00
[2025-01-13] MEDS: CALCIUM CARB 500 MG CHEW TAB PO PRN (21:13)
[2025-01-13] MEDS: ATORVASTATIN 20 MG TAB PO SCH (21:13)
[2025-01-14] VITALS (7 sets, daily range): BP systolic 132–142; BP diastolic 65–80; PULSE 56–68; RESP 16–18; TEMP 97.2–98.7; O2SAT 95–99
[2025-01-14 06:15] LABS: Basophils # (auto) 0.1 10 ^3/uL (0-0.2); Basophils % (auto) 1.3 % (0.0-2.0); Eosinophils # (auto) 0.4 10 ^3/uL (0-0.8); Eosinophils % (auto) 6.1 % (0.0-7.0); Hematocrit 33.4 % (36.0-46.0); Hemoglobin 10.8 g/dL (12.2-16.2); Lymphocytes # (auto) 1.7 10 ^3/uL (0.4-5.4); Lymphocytes % (auto) 27.2 % (10.0-50.0); Mean Corpuscular Hgb Conc. 32.4 g/dL (32.0-36.0); Mean Corpuscular Volume 95.6 fL (80.0-100.0); Monocytes # (auto) 0.4 10 ^3/uL (0-1.3); Monocytes % (auto) 6.9 % (0.0-12.0); Neutrophils # (auto) 3.7 10 ^3/uL (1.6-8.6); Neutrophils % (auto) 58.5 % (37.0-80.0); Nucleated Red Blood Cells % 0.2 %; Platelet Count (auto) 157 10^3/uL (140-450); Red Cell Distribution Width 15.3 % (11.8-14.3); White Blood Cell 6.4 10^3/uL (4.4-10.8)
[2025-01-14 06:25] LABS: Potassium 3.8 mmol/L (3.5-5.1); Sodium 142 mmol/L (136-145)
[2025-01-14 06:26] LABS: Anion Gap 10 (5-15); Calcium 9.2 mg/dL (8.7-10.4); Carbon Dioxide 20 mmol/L (20-31)
[2025-01-14 06:31] LABS: BUN/Creatinine Ratio 12.8 (10.0-20.0); Blood Urea Nitrogen 11 mg/dL (9-23); Glucose 88 mg/dL (74-106)
[2025-01-14 06:33] LABS: Chloride 112 mmol/L (98-107)
--- NOTE | 2025-01-14 12:44 | DVHINCON2 ---
Date of service: Jan 13, 2025 Referring Physician Antony Reason for Consultation Diarrhea History of Present Illness The patient is a 69-year-old female admitted with diarrhea. She has had diarrhea for a week. The patient was admitted with hypotension. She has a history of hypertension however her blood pressure was low. Since resolved. She denies any hematemesis or hematochezia. She denies any dysphagia or odynoph agia. Patient states that the diarrhea is intermittent. She denies any significant nocturnal symptoms. She states that she has incontinence when she goes to have bowel movement or when she is sitting to urinate. She has a history of peptic ulcer disease recently in October of 2024. She has a follow up appointment with the GI pending however this is on hold as she has changed i nsurance groups. Patient's last colonoscopy was three years ago. Patient denies any significant abdominal pain. Past Medical History As above Past Surgical History Reviewed Family History: FH: Parkinson's disease G8 FATHER, FH: atrial fibrillation G8 MOTHER FH: neuropathy G8 MOTHER Hypercholesterolemia G8 MOTHER Hypertension G8 MOTHER Family History No gastrointestinal diseases or malignancies Social History No tobacco alcohol or recreational drug use Allergies: Coded Allergies: Zinc (Verified Allergy, Unknown, 12/05/22) Home Meds Active Scripts Pantoprazole Sodium Sesquihydr (Pantoprazole Sodium) 40 Mg Tab, 40 MG PO BID for 30 Days, #60 TAB Prov:LONA HAMILTON MD 12/07/22 Reported Medications Hydrocodone-Acetaminophen (Hydrocodone/Acetaminophen 5-325 mg) 1 Tab Tab, 1 TAB PO TID PRN for pain 01/13/25 Ibuprofen Micronized (Ibuprofen) 800 Mg Tab, 1 TAB PO TID PRN for PAIN 01/13/25 Propranolol Hcl (Inderal La) 80 Mg Cap, 80 MG PO TID, CAP 01/13/25 Aspirin (Aspir-Low) 81 Mg Tab, 81 MG PO DAILY, TAB 11/07/24 Spironolactone (Spironolactone) 25 Mg Tab, 1 TAB PO DAILY, #90 TAB 1 Refill 11/07/24 Loratadine (Claritin) 10 Mg Tab, 10 MG PO DAILY, TAB 11/07/24 Furosemide (Furosemide) 20 Mg Tab, 1 TAB PO BID 12/07/22 Atorvastatin Calcium (ATORVASTATIN CALCIUM) 20 Mg Tab, 20 MG PO DAILY, TAB 12/05/22 Benazepril Hcl (Benazepril Hcl) 5 Mg Tab, 5 MG PO DAILY, MG 12/05/22 Gabapentin (Gabapentin) 300 Mg Cap, 300 MG PO DAILY, CAP 12/05/22 Current Medications Current Medications Medications (Trade) Dose Ordered Sig/Noemi Route PRN Reason Start Time Stop Time Status Last Admin Atorvastatin Calcium (Lipitor) 20 mg HS PO 01/13/25 22:00 01/13/25 21:13 Calcium Carbonate (Tums) 500 mg QIDPRN PRN PO FOR STOMACH DISTRESS 01/13/25 20:30 01/13/25 21:13 Review of Systems 12 point review of system was negative other than HPI Vital Signs Vital Signs Date Time Temp Pulse Resp B/P (MAP) Pulse Ox O2 Delivery O2 Flow Rate FiO2 01/14/25 08:47 97.7 60 16 138/67 (90) 95 97.7 01/14/25 08:00 Room Air* 0 21 Physical Exam General: Alert and oriented x4 Head head: NC/AT EOMI PERRLA Heart: Regular rate and rhythm Abdomen: Soft nontender nondistended Extremities: No clubbing cyanosis or edema Labs/Diagnostic Data Labs Test 01/14/25 05:12 01/13/25 11:40 01/12/25 21:19 01/12/25 18:30 Range/Units White Blood Count 6.4 4.4-10.8 10^3/uL Red Blood Count 3.50 L 4.0-5.20 10^6/uL Hemoglobin 10.8 L 12.2-16.2 g/dL Hematocrit 33.4 L 36.0-46.0 % Mean Corpuscular Volume 95.6 80.0-100.0 fL Mean Corpuscular Hemoglobin 31.0 28.0-32.0 pg Mean Corpuscular Hemoglobin Concent 32.4 32.0-36.0 g/dL Red Cell Distribution Width 15.3 H 11.8-14.3 % Platelet Count 157 140-450 10^3/uL Mean Platelet Volume 9.8 6.9-10.8 fL Neutrophils (%) (Auto) 58.5 37.0-80.0 % Lymphocytes (%) (Auto) 27.2 10.0-50.0 % Monocytes (%) (Auto) 6.9 0.0-12.0 % Eosinophils (%) (Auto) 6.1 0.0-7.0 % Basophils (%) (Auto) 1.3 0.0-2.0 % Neutrophils # (Auto) 3.7 1.6-8.6 10 ^3/uL Lymphocytes # (Auto) 1.7 0.4-5.4 10 ^3/uL Monocytes # (Auto) 0.4 0-1.3 10 ^3/uL Eosinophils # (Auto) 0.4 0-0.8 10 ^3/uL Basophils # (Auto) 0.1 0-0.2 10 ^3/uL Nucleated Red Blood Cells 0.2 % Sodium Level 142 136-145 mmol/L Potassium Level 3.8 3.5-5.1 mmol/L Chloride Level 112 H 98-107 mmol/L Carbon Dioxide Level 20 20-31 mmol/L Anion Gap 10 5-15 Blood Urea Nitrogen 11 9-23 mg/dL Creatinine 0.86 0.550-1.02 mg/dL Glomerular Filtration Rate Calc 73 >90 mL/min BUN/Creatinine Ratio 12.8 10.0-20.0 Serum Glucose 88 74-106 mg/dL Calcium Level 9.2 8.7-10.4 mg/dL Stool for White Cells None seen Troponin I High Sensitivity 11 </=34 ng/L Urine Color Light-yellow Yellow Urine Clarity Turbid H Clear Urine pH 6.0 5.0-9.0 Urine Specific [place] 1.014 1.001-1.035 Urine Protein Negative Negative Urine Ketones Negative Negative Urine Blood Negative Negative /uL Urine Nitrite Negative Negative Urine Bilirubin Negative Negative Urine Urobilinogen Normal Negative mg/dL Urine Leukocyte Esterase 3+ Negative /uL Urine RBC 2 0 - 4 /hpf Urine Microscopic WBC 2 0-5 /HPF Urine Squamous Epithelial Cells Mod <5 /hpf Urine Bacteria Few H None Seen /hpf Urine Hyaline Casts Few 0 - 2 /lpf Urine Mucus Few None Seen Urine Yeast (Budding) Occasional None Seen /hpf Urine Glucose Normal Normal mg/dL Test 01/12/25 17:30 Range/Units Lactic Acid Level 1.5 0.4-2.0 mmol/L Magnesium Level 2.3 1.6-2.6 mg/dL Total Bilirubin 0.5 0.2-1.0 mg/dL Aspartate Amino Transferase (AST) 23 13-40 U/L Alanine Aminotransferase (ALT) 26 7-40 U/L Alkaline Phosphatase 159 H 46-116 U/L B-Type Natriuretic Peptide 95.36 0-100 pg/mL Total Protein 6.5 5.7-8.2 g/dL Albumin 4.2 3.2-4.8 g/dL Microbiology Date/Time Source Procedure Growth Status 01/13/25 11:40 Stool Stool Culture - Preliminary Resulted 01/13/25 11:40 Stool Shiga Toxin I & II Pending Resulted Assessment Impression: Diarrhea Hypotension Hypotension resolved Problems(with codes): (1) Hypotensive episode (2) Near syncope Plan/Recommendation 1. Follow electrolytes 2. Consider workup with stool studies as an outpatient 3. Consider Imodium or Lomotil 4. Outpatient colonoscopy 5. Repeat EGD for evaluation of peptic ulcer as an outpatient Plan discussed with: Patient CAL LEMONS MD Jan 14, 2025 12:44
[2025-01-14] MEDS ORDERED: PROP80CA40 PO (13:34)
--- NOTE | 2025-01-14 13:36 | DVHDS2 ---
Discharge Summary Date of Admission Jan 12, 2025 at 22:08 Date of Discharge: Jan 14, 2025 Labs/Diagnostic Data: Laboratory Results Test 01/14/25 05:12 01/13/25 11:40 01/12/25 21:19 01/12/25 18:30 White Blood Count 6.4 10^3/uL (4.4-10.8) Red Blood Count 3.50 10^6/uL (4.0-5.20) Hemoglobin 10.8 g/dL (12.2-16.2) Hematocrit 33.4 % (36.0-46.0) Mean Corpuscular Volume 95.6 fL (80.0-100.0) Mean Corpuscular Hemoglobin 31.0 pg (28.0-32.0) Mean Corpuscular Hemoglobin Concent 32.4 g/dL (32.0-36.0) Red Cell Distribution Width 15.3 % (11.8-14.3) Platelet Count 157 10^3/uL (140-450) Mean Platelet Volume 9.8 fL (6.9-10.8) Neutrophils (%) (Auto) 58.5 % (37.0-80.0) Lymphocytes (%) (Auto) 27.2 % (10.0-50.0) Monocytes (%) (Auto) 6.9 % (0.0-12.0) Eosinophils (%) (Auto) 6.1 % (0.0-7.0) Basophils (%) (Auto) 1.3 % (0.0-2.0) Neutrophils # (Auto) 3.7 10 ^3/uL (1.6-8.6) Lymphocytes # (Auto) 1.7 10 ^3/uL (0.4-5.4) Monocytes # (Auto) 0.4 10 ^3/uL (0-1.3) Eosinophils # (Auto) 0.4 10 ^3/uL (0-0.8) Basophils # (Auto) 0.1 10 ^3/uL (0-0.2) Nucleated Red Blood Cells 0.2 % Sodium Level 142 mmol/L (136-145) Potassium Level 3.8 mmol/L (3.5-5.1) Chloride Level 112 mmol/L (98-107) Carbon Dioxide Level 20 mmol/L (20-31) Anion Gap 10 (5-15) Blood Urea Nitrogen 11 mg/dL (9-23) Creatinine 0.86 mg/dL (0.550-1.02) Glomerular Filtration Rate Calc 73 mL/min (>90) BUN/Creatinine Ratio 12.8 (10.0-20.0) Serum Glucose 88 mg/dL (74-106) Calcium Level 9.2 mg/dL (8.7-10.4) Stool for White Cells None seen Troponin I High Sensitivity 11 ng/L (</=34) Urine Color Light-yellow (Yellow) Urine Clarity Turbid (Clear) Urine pH 6.0 (5.0-9.0) Urine Specific [place] 1.014 (1.001-1.035) Urine Protein Negative (Negative) Urine Ketones Negative (Negative) Urine Blood Negative /uL (Negative) Urine Nitrite Negative (Negative) Urine Bilirubin Negative (Negative) Urine Urobilinogen Normal mg/dL (Negative) Urine Leukocyte Esterase 3+ /uL (Negative) Urine RBC 2 /hpf (0 - 4) Urine Microscopic WBC 2 /HPF (0-5) Urine Squamous Epithelial Cells Mod /hpf (<5) Urine Bacteria Few /hpf (None Seen) Urine Hyaline Casts Few /lpf (0 - 2) Urine Mucus Few (None Seen) Urine Yeast (Budding) Occasional /hpf (None Urine Glucose Normal mg/dL (Normal) Test 01/12/25 17:30 Lactic Acid Level 1.5 mmol/L (0.4-2.0) Magnesium Level 2.3 mg/dL (1.6-2.6) Total Bilirubin 0.5 mg/dL (0.2-1.0) Aspartate Amino Transferase (AST) 23 U/L (13-40) Alanine Aminotransferase (ALT) 26 U/L (7-40) Alkaline Phosphatase 159 U/L (46-116) B-Type Natriuretic Peptide 95.36 pg/mL (0-100) Total Protein 6.5 g/dL (5.7-8.2) Albumin 4.2 g/dL (3.2-4.8) Other Laboratory Tests 01/14/25 05:12 Brief Hx & Hospital Course: 69-year-old female with past medical history of hypertension, hyperlipidemia presents with complaints of dizziness and near-syncope x1 day. When EMS encounter with the patient patient was found to be hypotensive. Patient is currently taking propranolol, Lasix, spironolactone. She is not being followed by Cardiology. Patient also endorses she has been having diarrhea x1 week. While in the emergency department patient is noted to have heart rates ranging from 40s to low 50s. There are no complaints of fevers, chills, shortness of breath, chest pain, nausea, vomiting, abdominal pain, hematemesis, hematochezia, melena. Recently underwent endoscopy in October for evaluation of peptic ulcer. She is admitted and evaluated by mysql database administrator. [place] her symptoms were due to excessive dosage of propranolol 80 mg by mouth 3 times a day she was taking for essential tremors. While in the hospital her propranolol he has discontinued and heart rate is improved. Her symptoms resolved. Therefore she was advised to resume the propranolol at half the dose 40 mg 3 times a day to prevent rebound tachycardia. 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 Otherwise she was clinically stable not having any other issues therefore it is felt she could be safely discharged home. Patient verbalized understanding of her clinically stable, verbalized understanding over hospital diagnosis, treatment she received, discharge medications, discharge instructions and agreed with follow-up plan of care. Operations or Procedures APPROVED REPORT EXAM: Two-dimensional and M-mode echocardiogram with Doppler and color Doppler. Blood Pressure: 105/63 mmHg INDICATION bradycardia/ hypotension RISK FACTORS Obesity: Height: 5'3, Weight: 242 DIMENSIONS LVDd 3.6 (3.8-5.7cm) LA (2D) 3.2 (1.9-4.0cm) Aortic Root 3.5 (2.0- 3.7cm) LVDs 2.7 (2.5-4.0cm) LA (MM) (1.9-4.0cm) Aortic Cusp Exc 2.0 (1.5- 2.0cm) EF (%) 50.0 (55-70%) Rt. Atrium 4.1 (1.9-4.0cm) Asc. Aorta cm IVSd 1.2 (0.7-1.1cm) RV (D) 4.1 (1.8-2.4cm) PWd 1.0 (0.7-1.1cm) Mitral Valve Mitral Mitral Stenosis E wave 1.04m/s MV Mean GR. mmHg A wave 0.97m/s MV Peak GR. 75mmHg E/A ratio 1.1 2D MVA cm2 DECEL Time 215ms PRESS 1/2 Time ms Aortic Valve Aortic Valve Aortic Stenosis V1 1.52m/s AO Mean GR. 8mmHg V2 1.92m/s AO Peak GR. 15mmHg LVOT Diameter 2.3 (1.8-2.4cm) Doppler LUNA 3.29cm2 Pulmonic Valve V2 1.17m/s Tricuspid Valve TR Velocity 2.71m/s RVSP 38mmHg Conclusion Technically good study sinus bradycardia. Mild aortic root enlargement. Right atrial and right ventricular enlargement. Valves are normal. Left ventricular systolic performance is normal. EF is about 50%. Normal RV function. Moderator band noted in RV Dopplers unremarkable. No pericardial effusion masses or vegetations. SIGNED BY: MIKEL CLARK Sr., MD SIGNED DATE/TIME: 01/13/25 6319 Condition at Discharge: Stable Final Diagnosis/Problems List Bradycardia improved secondary to propranolol now dose adjusted, essential tremor Discharge Disposition: Home Discharge Instruct/Medications Diet: Consistent carbohydrate, Cardiac 2g Na,low cholest Activity: No Restrictions, As Tolerated Follow Up/Referral: Primary care physician and neurologist in 1-2 weeks to adjust propranolol and further management of bradycardia and essential tremors Medications: Cut down your propranolol to 40 mg 3 times a day from 80 mg t.i.d.. Continue other home medications as you were taking. Changed Medications: Propranolol Hcl (Inderal La) 80 Mg Cap 40 MG PO TID, #30 CAP (Changed from: 80 MG) Continued Medications: Aspirin (Aspir-Low) 81 Mg Tab 81 MG PO DAILY, TAB Atorvastatin Calcium (Atorvastatin Calcium) 20 Mg Tab 20 MG PO DAILY, TAB Benazepril Hcl (Benazepril Hcl) 5 Mg Tab 5 MG PO DAILY, MG Furosemide (Furosemide) 20 Mg Tab 1 TAB PO BID Gabapentin (Gabapentin) 300 Mg Cap 300 MG PO DAILY, CAP Hydrocodone-Acetaminophen (Hydrocodone/Acetaminophen 5-325 mg) 1 Tab Tab 1 TAB PO TID PRN for pain Ibuprofen Micronized (Ibuprofen) 800 Mg Tab 1 TAB PO TID PRN for PAIN Loratadine (Claritin) 10 Mg Tab 10 MG PO DAILY, TAB Pantoprazole Sodium Sesquihydr (Pantoprazole Sodium) 40 Mg Tab 40 MG PO BID for 30 Days, #60 TAB Spironolactone (Spironolactone) 25 Mg Tab 1 TAB PO DAILY, #90 TAB 1 Refill Discharge Statement: "Patient was advised to return to the ER or call 911 if any headaches, dizziness, shortness of breath, chest pain, abdominal pain, bleeding, fevers, or worsening of medical condition. Patient was counseled about treatment plan, medications, possible side effects, patientverbalized understanding. All questions were answered to the best of my ability. This discharge took greater then 30 minutes in planning, reviewing documentation, counseling the patient, and discussing with other team members." ASSESSMENT ASSESSMENT Assessment Bradycardia improved secondary to propranolol now dose adjusted, essential tremor QUOC BETHEA MD Jan 14, 2025 13:36
== END 2025-01-14 17:27 | disposition home or self-care (01) | DRG 640 ==
LOC: EDBD 16:46 → ER 16:46 → OVERFLOW 22:08 → TELE-CENTR 23:51
PROVIDERS: ADMIT Nurse Practitioner Family; ATTEND Nurse Practitioner Family
DX: E86.0 Dehydration (principal); N17.0 Acute kidney failure with tubular necrosis; N30.00 Acute cystitis without hematuria; Z68.41 Body mass index [BMI] 40.0-44.9, adult; N39.0 Urinary tract infection, site not specified; I95.9 Hypotension, unspecified; E66.01 Morbid (severe) obesity due to excess calories; I11.0 Hypertensive heart disease with heart failure; I50.9 Heart failure, unspecified; K21.9 Gastro-esophageal reflux disease without esophagitis; R00.1 Bradycardia, unspecified; G89.29 Other chronic pain; E78.5 Hyperlipidemia, unspecified; G25.0 Essential tremor; T50.995A Adverse effect of other drugs, medicaments and biological substances, initial encounter; Z82.0 Family history of epilepsy and other diseases of the nervous system; Z82.49 Family history of ischemic heart disease and other diseases of the circulatory system; Z90.49 Acquired absence of other specified parts of digestive tract; Z98.51 Tubal ligation status; Z91.048 Other nonmedicinal substance allergy status; Z79.1 Long term (current) use of non-steroidal anti-inflammatories (NSAID); Z79.891 Long term (current) use of opiate analgesic; Z79.82 Long term (current) use of aspirin; Z79.899 Other long term (current) drug therapy; Z87.11 Personal history of peptic ulcer disease; Y92.89 Other specified places as the place of occurrence of the external cause
CPT/HCPCS: 36415; 71045; 80048; 80053; 81001; 83605; 83735; 83880; 84484; 85025; 85048; 87045; 87427; 93005; 93306; 96361; 96374; 97163; 99291; G0378; J2470

== ENCOUNTER 2025-08-10 09:59 | Outpatient (CLI) | payer OTHER, MEDICAID ==
[~2025-08-10] VITALS: Ht 160 cm; Wt 98.0 kg
[~2025-08-10 09:59] MED LIST changes: -HYDR-4902 PO; +HYDR1TAB97 PO; -HYDR25TA4 PO; +IBUP-1455 PO; -MELO7.5T7 PO; +PROP80CA40 PO
[2025-08-10] MEDS: REGADENOSON 0.4 MG/5 ML SYRG IV ONE (12:43)
--- NOTE | 2025-08-13 09:55 | DVHSR ---
APPROVED REPORT Exam: Nuclear Stress Test BMI: 0 Stress Test Details Stress Test: Pharmacologic stress testing performed using 0.4 mg of regadenoson per 5 mL given IV ov er 10 seconds. HR Resting HR: 40 bpmMax Heart Rate (APMHR): 150.129170 bpm Max HR Achieved: 88 bpmTarget HR (85% APMHR): 127.636577 bpm % of APMHR: 58.67 Recovery HR: 46 bpm BP Resting BP: 107/65 mmHg Recovery BP: 101/50 mmHg ECG Resting ECG: Sinus Bradycardia Clinical Reason for Termination: Completed protocol Nurse Comments Recieved pt. from [facility]. A/Ox4 on RA. Connected to cardiac nurse, VS stable. PIV flushes well. Re viewed POC. Pt. verbalized understanding of procedure including risks and side effects, agrees for st ress testing. Lexiscan stress test performed per protocol. [facility] tech administered Cardiolite. Pt. tolerated well . Pt. stable, no change on exam. VS returned to baseline. Transferred to [facility] via wheelchair w/ te ch. Stress ECG Conclusion lvef 70% normal perfusion scan no severe ischemia non specific st chagnes inferiorly noted NM EXAM: Myocardial Perfusion REST/STRESS Imaging Protocol: Rest Tc-99m/Stress Tc-99m 1 day Resting Data Rest SPECT myocardial perfusion imaging was performed in supine position 60 minutes following the int ravenous injection of 9.8 mCi of Tc-99m Sestamibi. Time of rest injection: 0930 Time of rest imagin Administration Route: IV Administration Site: Left AC Pharmacologic Stress Pharmacologic stress test was performed by injecting Regadenoson 0.4 mg IV push followed by the intra venous injection of 33.1 mCi of Tc-99m Sestamibi. Time of stress injection: 1045 Time of stress imagin Administration Route: IV Administration Site: Left AC Gated Stress SPECT was performed 75 minutes after stress injection. The images were gated to evaluate regional wall motion and calculate left ventricular ejection fracti on. Nuclear Conclusion Nuclear Findings: negative for ischemia lvef 70% normal perfusion scan no severe ischemia non specific st chagnes inferiorly noted
== END 2025-08-10 17:00 | disposition home or self-care (01) ==
LOC: XYW 09:59
PROVIDERS: ATTEND Internal Medicine
DX: R00.1 Bradycardia, unspecified (principal); R07.9 Chest pain, unspecified
CPT/HCPCS: 78452; 93017; A9500